=== PATIENT | male | born 1955 | race Caucasian/White ===

== ENCOUNTER → 2016-04-22 | Outpatient (CLI) | payer OTHER ==
--- NOTE | 2016-04-22 18:16 | US ---
Right leg ultrasound INDICATION: Right leg stump. Rule out fluid. The tissue is performed at the site of the stump. TECHNIQUE: Limited ultrasound of the right stump is performed. FINDINGS: There is soft tissue swelling. There is no focal fluid collection. There is diffuse soft ti ssue edema. No mass is identified. IMPRESSION: Edema at this time. No localizing fluid collection. Findings were discussed with Dr. Herrera.
== END ==
LOC: FIMAGING 15:43
PROVIDERS: ATTEND Surgery
DX: R60.0 Localized edema (principal)

== ENCOUNTER → 2016-05-04 | Outpatient (CLI) | payer OTHER ==
[~2016-05-04] MED LIST: GADOBUTROL 10 ML VIAL IVP ONE
--- NOTE | 2016-05-04 15:08 | MR ---
MRI lower extremity, right proximal tibia without and with contrast History: History of wyisx-zim-havb amputation. Evaluate for osteomyelitis. Overlying swelling and his tory of prior osteomyelitis and abscess. ICD-10 code M86.9. Comparison: February 2016. Technique: MRI was performed of the proximal right tibia to include the knee using a 3 [employer] MRI syst em. Sagittal, coronal, and axial imaging was obtained with standard imaging sequences. Images were ob tained pre and postintravenous contrast, 8.5 mL Gadavist. Findings: Postsurgical changes are seen of a below-knee amputation, where there has been new interva l resection of the proximal 2 cm of the stump. There is a thin band of edema and enhancement at the r esection site, which appears appropriate for the postsurgical change. There is a small focal area of 9 mm of more predominant bone marrow edema and enhancement at the medial margin extending in a subcor tical location. No other significant bone marrow abnormality is visualized. There is mild edema and e nhancement in the overlying musculature and soft tissues, which could represent cellulitis and myosit is or postsurgical change. No evidence for an abnormal fluid collection to indicate abscess. Incidental note it made of intra-articular structures of the knees, as there is a diminutive appearan ce of the posterior horn medial meniscus with probable tear. There also appears to be tear in the pos terior horn lateral meniscus. Cartilage signal abnormality and thinning are seen in the medial and la teral compartments. Postsurgical changes are seen of prior ACL reconstruction with probable chronic t ear of the graft. Impression: Postsurgical changes of uekxk-lef-vaer amputation with interval resection of a portion o f the stump. Possible early osteomyelitis at the medial margin of the stump. No evidence for abscess.
== END ==
LOC: FIMAGING 12:51
PROVIDERS: ATTEND Internal Medicine Infectious Disease
DX: Z89.511 Acquired absence of right leg below knee (principal); R93.8 Abnormal findings on diagnostic imaging of other specified body structures; R60.9 Edema, unspecified; Z98.890 Other specified postprocedural states
CPT/HCPCS: A9585

== ENCOUNTER → 2016-09-08 | Outpatient (CLI) | payer OTHER | LOC: FIMAGING 06:55 | PROVIDERS: ATTEND Internal Medicine Infectious Disease | DX: M86.8X6 Other osteomyelitis, lower leg (principal); R60.9 Edema, unspecified; Z89.511 Acquired absence of right leg below knee; Z98.890 Other specified postprocedural states | CPT/HCPCS: A9585 ==

== ENCOUNTER 2016-12-30 06:57 | Day surgery (SDC) | payer OTHER ==
--- NOTE | 2016-12-26 12:44 | GHP ---
[f rep st] PREOP HISTORY AND PHYSICAL DATE OF SURGERY: 12/30/2016. CHIEF COMPLAINT: Bilateral inguinal hernias. HISTORY OF PRESENT ILLNESS: The patient is a 61-year-old man, well known to our service, here for revision of his fgrdi-qsi-wjzc amputation. He has symptomatic bilateral inguinal hernias. He denies any difficulty with bowel habits, urination, or pain. He denies any overlying skin changes. 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 Sleep apnea. PAST SURGICAL HISTORY: ACL repair, right BKA, a vasectomy. MEDICATIONS: Acyclovir, fiber. ALLERGIES: Xanax. FAMILY HISTORY: ALS in maternal grandfather, CVA in paternal grandfather, and lymphoma in father. SOCIAL HISTORY: He is with children. He denies tobacco or recreational drug use. He exercises regularly. He reports drinking 2 to 3 alcoholic beverages per week. REVIEW OF SYSTEMS: 10-point review of systems negative, aside from HPI. PHYSICAL EXAMINATION: GENERAL: Well-developed, well-nourished man, in no acute distress. HEENT: Normocephalic, atraumatic. No hearing deficits. Pupils equal and round. No scleral icterus. Mucous membranes moist. NECK: Trachea midline. RESPIRATORY: Clear to auscultation bilaterally. No increased work with breathing. CARDIOVASCULAR: Regular rate and rhythm. No peripheral edema. SKIN: Warm and dry. ABDOMEN: Bilateral reducible inguinal hernias. No overlying skin changes. : External genitalia normal. Testes descended bilaterally. MUSCULOSKELETAL: Right below-knee amputation. PSYCH: Mood and affect normal. NEURO: Grossly intact. IMPRESSION AND PLAN: The patient is a 61-year-old man with symptomatic bilateral inguinal hernias. We discussed laparoscopic repair. We discussed risks including, but not limited to, heart attack, stroke, blood clots, or . We discussed risk of infection, bleeding, damage to surrounding structures, including cord or cord structures or bowel. He understands the risks and would like to proceed. The patient had his questions answered to his satisfaction. The patient was additionally seen by Dr. Evangelina Nunez, who agrees the above impression and plan. /[id number]/MODL MTDD
[2016-12-30] MEDS ORDERED: ceFAZolin 2 GM/DEXTROSE 100 ML IV ONE (07:06)
--- NOTE | 2016-12-30 07:15 | PDHPUP ---
History & Physical Update H&P update statement: This history and physical update is based on an assessment of the patient which was completed after admission or registration (within 24 hours), but prior to the surgery/procedure. H&P update: H&P reviewed & patient examined, no change in patient's condition since H&P completed
[2016-12-30] MEDS ORDERED: LR 1,000 ML IV ONE (07:53)
[2016-12-30] MEDS ORDERED: BUPIVACAINE 0.5% 30 ML SDV ONE (08:07)
--- NOTE | 2016-12-30 09:13 | PDANEPAE ---
ANE History of Present Illness bilateral inguinal hernia repair, laproscopic ANE Past Medical History - Cardiovascular History Hx Hypertension: No Hx Arrhythmias: No Hx Chest Pain: No Hx Coronary Artery / Peripheral Vascular Disease: No Hx CHF / Valvular Disease: No Hx Palpitations: No - Pulmonary History Hx COPD: No Hx Asthma/Reactive Airway Disease: No Hx Recent Upper Respiratory Infection: No Hx Oxygen in Use at Home: No Hx Sleep Apnea: No Sleep Apnea Screening Result - Last Documented: Positive Pulmonary History Comment: Sleep apnea uses a mouth guard - Neurologic History Hx Cerebrovascular Accident: No Hx Seizures: No Hx Dementia: No - Endocrine History Hx Diabetes: No - Renal History Hx Renal Disorders: No - Liver History Hx Hepatic Disorders: No - Neurological & Psychiatric Hx Hx Neurological and Psychiatric Disorders: No - Cancer History Hx Cancer: No - Congenital Disorder History Hx Congenital Disorders: No - GI History Hx Gastrointestinal Disorders: No - Chronic Pain History Chronic Pain: No - Surgical History Prior Surgeries: BKA Right. ACl repair. vasectomy ANE Review of Systems Review of Systems: - Exercise capacity METS (RN): 4 METS ANE Patient History - Allergies Allergies/Adverse Reactions: alprazolam [From Xanax] Allergy (Verified 11/02/15 10:50) - Home Medications Home medications: home medication list seen and reviewed, none, over the counter medications & supplements Home Medications: Psyllium 12/28/16 [Last Taken Unknown] - NPO status NPO Since - Liquids (Date): 12/29/16 NPO Since - Liquids (Time): 20:00 NPO Since - Solids (Date): 12/29/16 NPO Since - Solids (Time): 20:00 - Anes Hx Anes Hx: no prior problems - Smoking Hx Smoking Status: Never smoked - Alcohol Use Alcohol Use: Occasionally - Family Anes Hx Family Hx Anesthesia Complications: none ANE Labs/Vital Signs - Vital Signs Height: 177.8 cm Weight: 83.915 kg ANE Physical Exam - Airway Neck exam: FROM Mallampati Score: Class 1 Mouth exam: normal dental/mouth exam - Pulmonary Pulmonary: no respiratory distress - Cardiovascular Cardiovascular: regular rate and rhythym - ASA Status ASA Status: I ANE Anesthesia Plan Anesthesia Plan: general endotracheal anesthesia (R/B/A explained and patient agrees to proceed. )
[2016-12-30] MEDS ORDERED: fentaNYL 100 MCG/2 ML INJ ONE ×2 (09:29→11:11)
[2016-12-30] MEDS ORDERED: ROCURONIUM 50 MG/5 ML VIAL ONE (09:29)
[2016-12-30] MEDS ORDERED: PROPOFOL/EMULSION 500 MG/50 ML BOTTLE IV ONE (09:29)
[2016-12-30] MEDS ORDERED: LIDOCAINE 2% 100 MG/5 ML SYR ONE (09:29)
[2016-12-30] MEDS ORDERED: LIDOCAINE HCL 160 MG/4 ML LTA KIT TP ONE (09:32)
[2016-12-30] MEDS ORDERED: METOCLOPRAMIDE 10 MG/2 ML VIAL IVP PRN (09:46)
[2016-12-30] MEDS ORDERED: ACETAMINOPHEN 500 MG TAB PO PRN (09:46)
[2016-12-30] MEDS ORDERED: ONDANSETRON 4 MG/2 ML VIAL IVP PRN (09:46)
[2016-12-30] MEDS ORDERED: LABETALOL HCL 50 MG/10 ML SYR IVP PRN (09:46)
[2016-12-30] MEDS ORDERED: MEPERIDINE 25 MG/ML SYR IVP PRN (09:46)
[2016-12-30] MEDS ORDERED: DEXAMETHASONE 4 MG/ML VIAL IVP PRN (09:46)
[2016-12-30] MEDS ORDERED: OXYCODONE/APAP 5/325 TAB PO PRN (09:46)
[2016-12-30] MEDS ORDERED: PROMETHAZINE HCL 25 MG/ML INJ IVP PRN (09:46)
[2016-12-30] MEDS ORDERED: ALBUTEROL 3 ML DEYVIAL IH PRN (09:46)
[2016-12-30] MEDS ORDERED: NALOXONE HCL 0.4 MG/ML INJ IVP PRN (09:46)
[2016-12-30] MEDS ORDERED: HYDROCODONE/APAP 5/325 TAB PO PRN (09:46)
[2016-12-30] MEDS ORDERED: LR 500 ML IV PRN (09:46)
[2016-12-30] MEDS ORDERED: DEXAMETHASONE 4 MG/ML VIAL ONE ×2 (09:49)
[2016-12-30] MEDS ORDERED: ONDANSETRON 4 MG/2 ML VIAL ONE (10:43)
[2016-12-30] MEDS ORDERED: SUGAMMADEX SODIUM 200 MG/2 ML VIAL IVP ONE (10:43)
[2016-12-30] MEDS ORDERED: KETOROLAC 30 MG/1 ML SDV ONE (10:43)
--- NOTE | 2016-12-30 10:49 | POSTOPPROG ---
Post Op Note Date of Operation: 12/30/16 Surgeon: Evangelina Nunez Shredder Tender Peat: juan Anesthesiologist: brittanie Anesthesia: GET(General Endotracheal) Pre-op Diagnosis: bih Post-op Diagnosis: bih Indication: 61 yo with bih Procedure: lap bih with mesh Findings: indirect left direct and indirect right Inf/Abcess present in the surg proc area at time of surgery?: No EBL: Minimal Specimen(s): none
--- NOTE | 2016-12-30 11:04 | POSTANESTH ---
Post Anesthetic Evaluation Cardiovascular Status: Normal, Stable Respiratory Status: Normal, Stable Level of Consciousness/Mental Status: Can Participate in Eval Pain Control: Adequate, Prn Tx Ordered Nausea/Vomiting Control: Adequate, Prn Tx Ordered Complications Possibly Related to Anesthesia: None Noted
[2016-12-30] MEDS ORDERED: MEPERIDINE 25 MG/ML SYR ONE (11:11)
[2016-12-30] MEDS: fentaNYL 100 MCG/2 ML INJ IVP PRN ×2 (11:15→11:32)
[2016-12-30 11:18] VITALS: TEMP 97.3
[2016-12-30] MEDS ORDERED: OXYCODONE/APAP 5/325 TAB ONE (11:30)
[2016-12-30 12:00] VITALS: RESP 14
[2016-12-30 12:10] VITALS: PULSE 69
[2016-12-30 12:54] VITALS: BP 128/83; O2SAT 92
--- NOTE | 2016-12-30 13:40 | GOP ---
[f rep st] OPERATIVE REPORT DATE OF OPERATION: 12/30/2016 SURGEON: Evangelina Nunez MD COUNSELOR CAMP: Aye Berry, NICK ANESTHESIA: General. ANESTHESIOLOGIST: Guerrero Reeves MD PREOPERATIVE DIAGNOSIS: Bilateral inguinal hernia. POSTOPERATIVE DIAGNOSIS: Left indirect inguinal hernia, right direct and indirect inguinal hernia. PROCEDURE PERFORMED: Laparoscopic bilateral inguinal hernia repair with mesh. FINDINGS: Left indirect inguinal hernia. Right direct and indirect inguinal hernia. SPECIMENS: None. ESTIMATED BLOOD LOSS: 5 cc. INDICATIONS: The patient is a 61-year-old man who developed bilateral inguinal hernias. DESCRIPTION OF PROCEDURE: The patient was brought into the operating room, placed supine on the tabl e, and general anesthesia was administered. His abdomen was prepped and draped in the usual sterile fashion. I infiltrated all sites with 0.5% Marcaine prior to making incisions. I made an incision b eneath his umbilicus. I dissected down through the subcutaneous tissues until I encountered the ante rior rectus sheath. I divided this, I swept the rectus muscles laterally and created a preperitoneal space with my finger. I inserted a balloon-tipped trocar directed toward the pubis. I performed luque nd insufflation with the camera in place. I then exchanged this balloon for the working balloon. He was placed in the Trendelenburg position. Insufflation was achieved at 15 mmHg. I placed a 5 mm suprapubic trocar and a 2nd 5 mm trocar between the 1st and 2nd trocars. I began the operation on th e left side. The inferior epigastric vessels were kept anterior to the plane. I swept the pubis arely e of investing tissue. I reduced fat and identified the cord, cord structures and hernia sac. I ful ly reduced the hernia sac. I placed a piece of laparoscopic self-fixating ProGrip mesh and unrolled this to cover the direct, indirect, and femoral spaces. It was tacked to the pubic tubercle and ante riorly. On the right side, I began a similar dissection. On this side, the plane was much more adhesed. The re was a direct hernia as well as an indirect hernia. I was able to reduce them both successfully. I placed a piece of laparoscopic self-fixating ProGrip mesh to cover the direct, indirect, and femora l spaces. It was also tacked to the pubis and anteriorly. I allowed the preperitoneal space to desufflate. I removed the trocars. I closed the fascia with 0 Vicryl. I closed skin with 4-0 Monocryl. Dermabond applied. He was awakened in the operating room, extubated, transferred to PACU in stable condition. /[id number]/MODL
== END 2016-12-30 13:04 | disposition home or self-care (01) ==
LOC: FSGY 06:57
PROVIDERS: ATTEND Surgery
PROC: 0YUA4JZ Supplement Bilateral Inguinal Region with Synthetic Substitute, Percutaneous Endoscopic Approach (ICD-10-PCS; principal; 2016-12-30 08:30)
DX: K40.20 Bilateral inguinal hernia, without obstruction or gangrene, not specified as recurrent (principal); G47.30 Sleep apnea, unspecified; Z89.511 Acquired absence of right leg below knee
CPT/HCPCS: C1727; C1781; J0690; J1100; J1885; J2001; J2405; J2704; J3010